=== PATIENT | male | born 1960 | race African-American/Black ===

== ENCOUNTER 2022-02-13 23:25 | Emergency (ER) | payer MEDICAID ==
[~2022-02-13] VITALS: Ht 170.2 cm; Wt 73.0 kg
[2022-02-14 01:51] LABS: BASOPHILS % 0.2 % (0.0-2.0); EOSINOPHILS % 0.2 % (0.0-5.0); HEMATOCRIT. 34.1 % (42.0-52.0); HEMOGLOBIN. 11.6 g/dL (14.0-18.0); LYMPHOCYTES % 18.1 % (20.0-50.0); MEAN CORPUSCULAR HEMOGLOBIN 29.9 pg (28.0-32.0); MEAN CORPUSCULAR VOLUME 87.9 fL (80.0-94.0); NEUTROPHILS % 73.5 % (40.0-76.0); PLATELET 308 x1000/uL (130-400); RED BLOOD CELL COUNT 3.88 mill/uL (4.7-6.1); RED CELL DISTRIBUTION WIDTH 16.6 % (11.6-14.6)
[2022-02-14 01:56] LABS: CHLORIDE 105 mEq/L (98-107)
[2022-02-14 05:03] VITALS: BP 128/86
== END 2022-02-14 05:20 | disposition home or self-care (01) ==
LOC: ER 23:25
DX: R55 Syncope and collapse (principal); M25.551 Pain in right hip; Z86.73 Personal history of transient ischemic attack (TIA), and cerebral infarction without residual deficits; Z85.6 Personal history of leukemia
CPT/HCPCS: 36415; 71045; 80053; 83880; 84484; 85025; 93005; 99285